=== PATIENT | male | born 1990 | race Caucasian/White ===

== ENCOUNTER 2017-07-26 02:36 | Emergency (ER) | payer SELFPAY ==
[~2017-07-26] VITALS: Ht 165.1 cm; Wt 63.6 kg
[2017-07-26] MEDS ORDERED: LEVE500T53 PO (02:39)
[2017-07-26 04:18] VITALS: BP 113/54
[2017-07-26] MEDS ORDERED: ONDANSETRON HCL 4 MG TABLET PO ONE (04:30)
== END 2017-07-26 05:01 | disposition home or self-care (01) ==
LOC: EMS 02:38
DX: R07.9 Chest pain, unspecified (principal); R51 Headache; F10.10 Alcohol abuse, uncomplicated; F17.210 Nicotine dependence, cigarettes, uncomplicated
CPT/HCPCS: 71045; 93005; 99284; Q0162

== ENCOUNTER 2017-09-01 17:41 | Emergency (ER) | payer SELFPAY ==
[~2017-09-01] VITALS: Ht 167.6 cm; Wt 63.6 kg
[~2017-09-01 17:41] MED LIST: LEVE500T53 PO
[2017-09-01 17:46] VITALS: BP 120/85
== END 2017-09-01 20:28 | disposition left against medical advice (07) ==
LOC: EMS 17:47
DX: F10.239 Alcohol dependence with withdrawal, unspecified (principal); Z53.21 Procedure and treatment not carried out due to patient leaving prior to being seen by health care provider

== ENCOUNTER 2017-09-01 21:35 | Emergency (ER) | payer MEDICAID ==
[~2017-09-01] VITALS: Ht 177.8 cm; Wt 65.0 kg
[2017-09-01 21:41] VITALS: BP 130/90
== END 2017-09-02 01:36 | disposition left against medical advice (07) ==
LOC: EMS 21:38
DX: R56.9 Unspecified convulsions (principal); Z53.21 Procedure and treatment not carried out due to patient leaving prior to being seen by health care provider